=== PATIENT | male | born 1950 | race Caucasian/White ===

== ENCOUNTER 2018-06-07 15:08 | Emergency (ER) | payer MEDICARE, OTHER ==
[~2018-06-07] VITALS: Wt 74.8 kg
[~2018-06-07 15:08] MED LIST: ASPI-831 PO; ATOR10TA65 PO; BENA10TA4 PO; METO25TA4 PO; TAMS0.4C2 PO
--- NOTE | 2018-06-07 15:42 | ERD ---
ER Documentation Chief Complaint Chief Complaint PALPITATION ONSET 2 HRS AGO HPI The patient is a 67-year-old male, presenting to the ER because of chest pressure and palpitation that began around 1 PM today. He has similar symptoms previously. He is scheduled for cardiac ablation in [address] Parker, asked him to stop metoprolol 25 mg twice daily which he did stop yesterday. He denies syncope, near syncope, neck pain, chest pain, abdominal pain, vomiting, dysuria, diarrhea. He does not smoke nor drink Past medical history: Hypertension, BPH, dyslipidemia, history of DVT Past surgical history: Cholecystectomy, tonsillectomy, left eye prosthetic ROS All systems reviewed and are negative except as per history of present illness. Medications Home Meds Reported Medications Rivaroxaban* (Xarelto*) 20 Mg Tablet, 20 MG PO WITH DINNER, TAB 06/07/18 Metoprolol Tartrate* (Lopressor*) 25 Mg Tablet, 37.5 MG PO BID, #60 TAB 06/07/18 Irbesartan* (Irbesartan*) 150 Mg Tablet, 150 MG PO QAM, TAB 06/07/18 Tamsulosin Hcl* (Flomax*) 0.4 Mg Cap.er.24h, 0.4 MG PO DAILY, CAP 06/07/18 Discontinued Reported Medications Metoprolol Tartrate* (Lopressor*) 25 Mg Tablet, 25 MG PO BID, #60 TAB 10/10/15 Tamsulosin Hcl* (Tamsulosin Hcl*) 0.4 Mg Cap.er.24h, 0.4 MG PO DAILY, CAP 03/21/15 Atorvastatin Calcium (Atorvastatin Calcium) 10 Mg Tablet, 10 MG PO QHS, #30 TAB 03/21/15 Benazepril Hcl* (Benazepril Hcl*) 10 Mg Tablet, 10 MG PO DAILY, TAB 05/11/14 Discontinued Scripts Aspirin (Aspirin) 81 Mg Chew, 81 MG PO DAILY for 30 Days, TAB Prov:FRANCISCO EVANS F 03/22/15 Allergies Allergies: Coded Allergies: No Known Allergy (Unverified , 06/07/18) PMhx/Soc History of Surgery: Yes Anesthesia Reaction: No Hx Neurological Disorder: No Hx Respiratory Disorders: No Hx Cardiac Disorders: Yes (SVT) Hx Psychiatric Problems: No Hx Miscellaneous Medical Probl: No Hx Alcohol Use: Yes Hx Substance Use: No Hx Tobacco Use: No Physical Exam Vitals Vital Signs Date Temp Pulse Resp B/P (MAP) Pulse Ox O2 O2 Flow FiO2 Time Delivery Rate 06/07/18 78 16 125/82 100 Nasal 2.0 17:16 (96) Cannula 06/07/18 80 14 132/76 100 Nasal 2.0 16:14 (94) Cannula 06/07/18 Nasal 2 15:46 Cannula 06/07/18 142 16 90/73 (79) 100 Room Air 15:32 06/07/18 98.5 161 18 90/54 (66) 99 15:15 Physical Exam Const: No acute distress. Head: Atraumatic. Eyes: Normal Conjunctiva. ENT: Normal External Ears, Nose and Mouth. Neck: Full range of motion. No meningismus. Resp: Clear to auscultation bilaterally. Cardio: Regular tachycardic Abd: Soft, non distended, normal bowel sounds, non tender. Skin: No petechiae or rashes. Back: No midline or flank tenderness. Ext: No cyanosis, or edema. Neur: Awake and alert. No focal deficit Psych: Normal Mood and Affect. Result Diagram: 06/07/18 1536 06/07/18 1536 Results 24 hrs Laboratory Tests Test 06/07/18 15:36 White Blood Count 9.6 10^3/ul Red Blood Count 4.55 10^6/ul Hemoglobin 14.4 g/dl Hematocrit 41.5 % Mean Corpuscular Volume 91.2 fl Mean Corpuscular Hemoglobin 31.6 pg Mean Corpuscular Hemoglobin Concent 34.7 g/dl Red Cell Distribution Width 11.6 % Platelet Count 209 10^3/UL Mean Platelet Volume 9.2 fl Immature Granulocytes % 0.400 % Neutrophils % 72.3 % Lymphocytes % 16.1 % Monocytes % 7.9 % Eosinophils % 2.9 % Basophils % 0.4 % Nucleated Red Blood Cells % 0.0 /100WBC Immature Granulocytes # 0.040 10^3/ul Neutrophils # 7.0 10^3/ul Lymphocytes # 1.6 10^3/ul Monocytes # 0.8 10^3/ul Eosinophils # 0.3 10^3/ul Basophils # 0.0 10^3/ul Nucleated Red Blood Cells # 0.0 10^3/ul Sodium Level 138 mmol/L Potassium Level 4.6 mmol/L Chloride Level 100 mmol/L Carbon Dioxide Level 27 mmol/L Anion Gap 11 Blood Urea Nitrogen 21 mg/dl Creatinine 1.18 mg/dl Est Glomerular Filtrat Rate mL/min > 60 mL/min Glucose Level 131 mg/dl Calcium Level 10.2 mg/dl Magnesium Level 1.9 mg/dl Troponin I < 0.012 ng/ml Thyroid Stimulating Hormone (TSH) 0.798 MIU/L Current Medications Medications Dose Sig/Hansel Start Time Status Last (Trade) Ordered Route PRN Stop Time Admin Dose Reason Admin Adenosine 6 mg ONCE ONCE 06/07/18 DC 06/07/18 (Adenosine) IV 16:30 16:32 06/07/18 16:31 Procedures/MDM [place] [id number] Radiology Main Line: [phone] DIAGNOSTIC IMAGING REPORT Patient: BRANDEN LAWRENCE : 1950 Age: 67 Sex: M MR #: [id number] DOS: 06/07/18 1542 Ordering MD: TIAN MOYA MD Location: E/R Room/Bed: PROCEDURE: XR Chest. CLINICAL INDICATION: chest pain TECHNIQUE: Single frontal view of the chest was obtained COMPARISON: CR CHEST 10/10/2015 FINDINGS: The heart and mediastinum are within normal limits. The lungs are clear. There is no pleural effusion or pneumothorax. RPTAT: AA IMPRESSION: No acute disease. .Mt Palmer MD, MD Date Time Electronically viewed and signed by .Mt Palmer MD, MD on 06/07/2018 16:08 .S/ CC: TIAN MOYA MD [phone] EK:16 PM read by emergency physician Rate/Rhythm: SVT 154 beats/min QRS, ST, T-waves: No ST elevation, no T inversion Impression: Abnormal EKG EK:06 PM read by emergency physician Rate/Rhythm: NSR 91 beats/min QRS, ST, T-waves: No ST elevation, no T inversion, PVC Impression: Abnormal EKG Consultation: I page his product/industry consultant Dr Parker for many hours but he did not return the phone calls. The patients wanted to go home. The differential diagnoses considered include but are not limited to acute coronary syndrome, acute myocardial infarction, pericarditis, pulmonary embolism, aortic dissection, pneumonia, pleural effusion, pneumothorax, GERD, chest wall pain. Departure Diagnosis: Primary Impression: SVT (supraventricular tachycardia) Condition: Good Comments I discussed the findings with the patient. I advised the patient to follow-up with Dr Parker in the morning and return if any concern. Disclaimer: Inadvertent spelling and grammatical errors are likely due to EHR/dictation software use and do not reflect on the overall quality of patient care. Also, please note that the electronic time recorded on this note does not necessarily reflect the actual time of the patient encounter. TIAN MOYA MD Jun 07, 2018 15:42
[2018-06-07] MEDS ORDERED: ADENOSINE 6 MG INJ IV ONE (16:30)
[2018-06-07] MEDS ORDERED: TAMS-14 PO (16:42)
[2018-06-07] MEDS ORDERED: IRBE150T21 PO (16:43)
[2018-06-07] MEDS ORDERED: RIVA20TA5 PO (16:44)
[2018-06-07] MEDS ORDERED: METO25TA4 PO (16:44)
[2018-06-07 17:16] VITALS: BP 125/82; PULSE 78; RESP 16
== END 2018-06-07 18:00 | disposition home or self-care (01) ==
LOC: E/R 15:08
DX: I47.1 Supraventricular tachycardia (principal); I10 Essential (primary) hypertension
CPT/HCPCS: 36415; 71045; 80048; 83735; 84443; 84484; 85025; 93005; 96374